=== PATIENT | male | born 1995 | race Two or more races ===

== ENCOUNTER 2019-01-10 20:04 | Emergency (ER) | payer SELFPAY ==
[~2019-01-10] VITALS: Ht 167.6 cm; Wt 90.7 kg
[2019-01-10 21:28] LABS: Urine Bacteria NONE SEEN /hpf (None Seen); Urine Blood Negative /uL (Negative); Urine Specific Gravity 1.004 (1.001-1.035); Urine WBC 29 /hpf (0 - 3)
[2019-01-10 21:38] LABS: Alcohol, Urine < 3.0 mg/dL (0-5); Amphetamine Screen, Urine NEGATIVE (NEGATIVE); Barbiturate Scree,Urine NEGATIVE (NEGATIVE); Benzodiazephine Screen, Urine NEGATIVE (NEGATIVE); Cannabinoid Screen, Urine NEGATIVE (NEGATIVE); Cocaine Screen, Urine NEGATIVE (NEGATIVE); Opiate Scree,Urine NEGATIVE (NEGATIVE); Phencyclidine Screen, Urine NEGATIVE (NEGATIVE)
[2019-01-10] MEDS ORDERED: LORazepam 0.5 MG TAB PO ONE (22:30)
[2019-01-10] MEDS ORDERED: cefTRIAXone W LIDOCAINE 500 MG IM IM ONE (23:15)
[2019-01-11 00:11] VITALS: BP 134/75
== END 2019-01-11 00:56 | disposition home or self-care (01) ==
LOC: ER 20:08
DX: F20.9 Schizophrenia, unspecified (principal); F15.10 Other stimulant abuse, uncomplicated
CPT/HCPCS: 80307; 81001; 99284; J0696

== ENCOUNTER 2019-01-11 12:27 | Emergency (ER) | payer SELFPAY ==
[~2019-01-11] VITALS: Ht 167.6 cm; Wt 90.7 kg
[2019-01-11 12:39] VITALS: BP 131/83
== END 2019-01-11 13:14 | disposition left against medical advice (07) ==
LOC: ER 12:36
DX: F41.1 Generalized anxiety disorder (principal); R30.0 Dysuria; Z53.29 Procedure and treatment not carried out because of patient's decision for other reasons

== ENCOUNTER 2019-01-11 16:30 | Emergency (ER) | payer SELFPAY ==
[~2019-01-11] VITALS: Ht 167.6 cm; Wt 113.4 kg
[2019-01-11 17:03] VITALS: BP 122/76
== END 2019-01-11 18:15 | disposition home or self-care (01) ==
LOC: ER 16:33
DX: F41.1 Generalized anxiety disorder (principal); F15.10 Other stimulant abuse, uncomplicated

== ENCOUNTER 2019-01-11 20:00 | Emergency (ER) | payer MEDICAID ==
[~2019-01-11] VITALS: Ht 167.6 cm; Wt 74.8 kg
[2019-01-11] MEDS ORDERED: LORazepam 0.5 MG TAB PO ONE (20:30)
[2019-01-11 23:03] LABS: Basophils # (auto) 0.1 uL; Basophils % (auto) 0.8 % (0.0-2.0); Eosinophils # (auto) 0.3 uL; Eosinophils % (auto) 2.7 % (0.0-7.0); Hematocrit 46.1 % (41.0-53.0); Hemoglobin 15.1 g/dL (13.5-17.5); Lymphocytes # (auto) 3.4 uL; Lymphocytes % (auto) 32.4 % (10.0-50.0); Mean Corpuscular Hemoglobin 27.7 pg (28.0-32.0); Mean Corpuscular Hgb Conc. 32.7 g/dL (32.0-36.0); Mean Corpuscular Volume 84.8 fL (80.0-100.0); Monocytes # (auto) 0.8 uL; Monocytes % (auto) 7.4 % (0.0-12.0); Neutrophils % (auto) 56.7 % (37.0-80.0); Platelet Count (auto) 350 10^3/uL (140-450); Red Blood Cells 5.44 10^6/uL (4.5-5.90); Red Cell Distribution Width 13.4 % (11.8-14.3); White Blood Cell 10.6 10^3/uL (4.4-10.8)
[2019-01-11 23:18] LABS: Alanine Aminotransferase 40 U/L (16-61); Albumin 3.7 g/dL (3.4-5.0); Anion Gap 8 (5-15); Aspartate Aminotransferase 17 U/L (15-37); Blood Alcohol < 3.0 mg/dL (0-5); Blood Urea Nitrogen 15 mg/dL (7-18); Calcium 8.4 mg/dL (8.5-10.1); Carbon Dioxide 23 mmol/L (21-32); Chloride 107 mmol/L (98-107); GFR African American 117 mL/min; GFR Non-African American 97 mL/min; Glucose 88 mg/dL (74-106); Potassium 3.9 mmol/L (3.5-5.1); Sodium 138 mmol/L (136-145)
[2019-01-11 23:20] LABS: Salicylate < 1.7 mg/dL (2.8-20.0)
[2019-01-11 23:21] LABS: Alkaline Phosphatase 96 U/L (45-117); Bilirubin, Total 0.3 mg/dL (0.2-1.0); Total Protein 7.7 g/dL (6.4-8.2)
[2019-01-11 23:22] LABS: Acetaminophen < 2.0 ug/mL (10-30)
[2019-01-12 00:06] LABS: Alcohol, Urine < 3.0 mg/dL (0-5); Barbiturate Scree,Urine NEGATIVE (NEGATIVE); Benzodiazephine Screen, Urine NEGATIVE (NEGATIVE); Cannabinoid Screen, Urine NEGATIVE (NEGATIVE); Cocaine Screen, Urine NEGATIVE (NEGATIVE); Opiate Scree,Urine NEGATIVE (NEGATIVE)
[2019-01-12 00:14] LABS: Urine Bacteria FEW /hpf (None Seen); Urine Blood Negative /uL (Negative); Urine WBC 26 /hpf (0 - 3); Urine WBC Clumps PRESENT /hpf (None Seen)
[2019-01-12 01:05] LABS: Amphetamine Screen, Urine NEGATIVE (NEGATIVE); Phencyclidine Screen, Urine NEGATIVE (NEGATIVE)
[2019-01-12 02:40] VITALS: BP 124/85
[2019-01-12] MEDS ORDERED: cefTRIAXone W LIDOCAINE 500 MG IM IM ONE (03:00)
[2019-01-12] MEDS ORDERED: AZITHROMYCIN 250 MG TAB PO ONE (03:00)
== END 2019-01-12 02:47 | disposition home or self-care (01) ==
LOC: EDBD 20:00 → ER 20:09
DX: Z04.6 Encounter for general psychiatric examination, requested by authority (principal); F41.9 Anxiety disorder, unspecified; F15.10 Other stimulant abuse, uncomplicated
CPT/HCPCS: 36415; 80053; 80307; 80320; 80329; 81001; 85025; 99284; J0696

== ENCOUNTER 2019-01-20 19:17 | Emergency (ER) | payer MEDICAID ==
[~2019-01-20] VITALS: Ht 170.2 cm; Wt 79.4 kg
[2019-01-20] MEDS ORDERED: cloNIDine HCL 0.1 MG TAB PO ONE (20:00)
[2019-01-20] MEDS ORDERED: LORazepam 0.5 MG TAB PO ONE (21:45)
[2019-01-20 23:24] LABS: Basophils # (auto) 0.1 uL; Basophils % (auto) 0.6 % (0.0-2.0); Eosinophils # (auto) 0.2 uL; Eosinophils % (auto) 1.8 % (0.0-7.0); Hematocrit 48.2 % (41.0-53.0); Hemoglobin 15.9 g/dL (13.5-17.5); Lymphocytes # (auto) 3.5 uL; Lymphocytes % (auto) 32.3 % (10.0-50.0); Mean Corpuscular Hemoglobin 27.8 pg (28.0-32.0); Mean Corpuscular Hgb Conc. 33.1 g/dL (32.0-36.0); Mean Corpuscular Volume 84.1 fL (80.0-100.0); Monocytes # (auto) 0.6 uL; Monocytes % (auto) 5.9 % (0.0-12.0); Neutrophils # (auto) 6.5 uL; Neutrophils % (auto) 59.4 % (37.0-80.0); Nucleated Red Blood Cells % 0.1 %; Platelet Count (auto) 365 10^3/uL (140-450); Red Blood Cells 5.73 10^6/uL (4.5-5.90); Red Cell Distribution Width 13.6 % (11.8-14.3); White Blood Cell 10.9 10^3/uL (4.4-10.8)
[2019-01-20 23:40] LABS: Salicylate < 1.7 mg/dL (2.8-20.0)
[2019-01-20 23:41] LABS: Chloride 105 mmol/L (98-107); Potassium 4.1 mmol/L (3.5-5.1); Sodium 138 mmol/L (136-145)
[2019-01-20 23:46] LABS: Alanine Aminotransferase 67 U/L (16-61); Albumin 4.1 g/dL (3.4-5.0); Alkaline Phosphatase 92 U/L (45-117); Anion Gap 8 (5-15); Aspartate Aminotransferase 28 U/L (15-37); BUN/Creatinine Ratio 9.9; Bilirubin, Total 0.2 mg/dL (0.2-1.0); Blood Alcohol < 3.0 mg/dL (0-5); Blood Urea Nitrogen 9 mg/dL (7-18); Calcium 9.1 mg/dL (8.5-10.1); Carbon Dioxide 25 mmol/L (21-32); GFR African American 131 mL/min; GFR Non-African American 108 mL/min; Glucose 86 mg/dL (74-106); Total Protein 8.4 g/dL (6.4-8.2)
[2019-01-20 23:52] LABS: Acetaminophen < 2.0 ug/mL (10-30)
[2019-01-21 00:10] LABS: Urine Bacteria NONE SEEN /hpf (None Seen); Urine Blood Negative /uL (Negative); Urine Mucus FEW (None Seen); Urine Specific Gravity 1.021 (1.001-1.035); Urine WBC 64 /hpf (0 - 3); Urine WBC Clumps PRESENT /hpf (None Seen)
[2019-01-21 00:14] LABS: Alcohol, Urine < 3.0 mg/dL (0-5); Amphetamine Screen, Urine NEGATIVE (NEGATIVE); Barbiturate Scree,Urine NEGATIVE (NEGATIVE); Benzodiazephine Screen, Urine NEGATIVE (NEGATIVE); Cannabinoid Screen, Urine NEGATIVE (NEGATIVE); Cocaine Screen, Urine NEGATIVE (NEGATIVE); Opiate Scree,Urine NEGATIVE (NEGATIVE)
[2019-01-21 00:18] LABS: Phencyclidine Screen, Urine NEGATIVE (NEGATIVE)
[2019-01-21 03:43] VITALS: BP 116/75
== END 2019-01-21 05:40 | disposition home or self-care (01) ==
LOC: EDBD 19:17 → EDUNIT# 19:17 → ER 19:20
DX: F41.9 Anxiety disorder, unspecified (principal); R42 Dizziness and giddiness; R20.2 Paresthesia of skin
CPT/HCPCS: 36415; 71045; 80053; 80307; 80320; 80329; 81001; 85025; 93005

== ENCOUNTER 2019-01-27 16:41 | Emergency (ER) | payer MEDICAID ==
[~2019-01-27] VITALS: Ht 167.6 cm; Wt 81.6 kg
[2019-01-27 17:24] VITALS: BP 117/77
[2019-01-27] MEDS ORDERED: diphenhdrAMINE HCL 50 MG/1 ML VL IM ONE (17:45)
== END 2019-01-27 18:25 | disposition home or self-care (01) ==
LOC: EDBD 16:41 → ER 16:45
DX: F41.1 Generalized anxiety disorder (principal); F12.10 Cannabis abuse, uncomplicated
CPT/HCPCS: 81002; 93005; 96372; 99284; J1200